=== PATIENT | male | born 1990 | race Caucasian/White ===

== ENCOUNTER → 2023-08-16 15:22 | Outpatient (CLI) | payer OTHER, SELFPAY ==
--- NOTE | 2023-08-16 15:35 | DI.RAD.S_ITS ---
PROCEDURE: XR FOOT RT MIN 3V INDICATIONS: 200lb sheet metal smashed lateral foot 2-5 metatarsal tender TECHNIQUE: 3 views of the foot were acquired. COMPARISON: None. FINDINGS: Bones: There is a mildly displaced fracture at the proximal aspect of the 4th metatarsal. No intra-articular extension.. No suspicious bony lesions. Soft tissues: No tibiotalar joint effusion. Achilles tendon appears normal. IMPRESSION: Proximal 4th metatarsal mildly displaced fracture. Dictated by: Roxanne Armstrong M.D. on 08/16/2023 at 16:28 Approved by: Roxanne Armstrong M.D. on 08/16/2023 at 16:29
== END ==
PROVIDERS: Referring Provider Student in an Organized Health Care Education/Training Program; Visit Provider Student in an Organized Health Care Education/Training Program
DX: S92.341A Displaced fracture of fourth metatarsal bone, right foot, initial encounter for closed fracture (principal); W22.8XXA Striking against or struck by other objects, initial encounter; Y99.0 Civilian activity done for income or pay
CPT/HCPCS: 73630